=== PATIENT | female | born 1995 | race Two or more races ===

== ENCOUNTER 2019-09-29 10:57 | Emergency (ER) | payer MEDICAID, OTHER ==
[~2019-09-29] VITALS: Ht 154.9 cm; Wt 102.1 kg
[2019-09-29 12:16] VITALS: BP 127/68
== END 2019-09-29 12:24 | disposition home or self-care (01) ==
LOC: ER 10:57
DX: T16.2XXA Foreign body in left ear, initial encounter (principal); W22.8XXA Striking against or struck by other objects, initial encounter; Y93.89 Activity, other specified; Y92.89 Other specified places as the place of occurrence of the external cause; Y99.8 Other external cause status